=== PATIENT | female | born 1970 | race Caucasian/White ===

== ENCOUNTER 2016-10-20 12:17 | Emergency (ER) | payer OTHER ==
[~2016-10-20] VITALS: Ht 167.6 cm; Wt 100.0 kg
[~2016-10-20 12:17] MED LIST: ALBUAER INH; ATV/1 PO; CALC-354 PO; CALC500C3 PO; CETI10TA84 PO; CHOL1CAP57 PO; CLC100X PO; CRFL PO; CYCL5TAB PO; DFL100 PO; LEVO50TA6 PO; LSX20 PO; NSNN50; NYSS/; OMEP40CA PO; ONDA8TAB6 PO; PRD10 PO; PROM12.56 PO; RANITAB33 PO; TAPE50TA5 PO; VALA1TAB2 PO; XPNIN INH; [UNRECOGNIZED DRUG - CODE] PO
[2016-10-20 12:23] VITALS: TEMP 36.6; Ht 167.6 cm; Wt 100.0 kg
[2016-10-20] MEDS ORDERED: SODIUM CHLORIDE 0.9% 500ML 500 ML IV STA (13:00)
[2016-10-20] MEDS ORDERED: HYDROmorphone INJ 0.5 MG/0.5 ML SYR IV STA (13:00)
--- NOTE | 2016-10-20 14:05 | DIAGNOSTIC IMAGING REPORT ---
LEFT ANKLE MIN 3 VIEWS ROUTINE CLINICAL HISTORY: Left ankle pain COMPARISON: None. DISCUSSION: No fractures or dislocations are visualized. The ankle mortise appears intact. There is bimalleolar soft tissue swelling. IMPRESSION: Soft tissue swelling. No fractures or dislocations identified. Electronically signed by: Dave Castillo M.D. 10/20/2016 2:04 PM Dictated Date/Time: 10/20/2016 2:03 PM
--- NOTE | 2016-10-20 14:08 | DIAGNOSTIC IMAGING REPORT ---
SINGLE VIEW CHEST CLINICAL HISTORY: Atypical chest pain. FINDINGS: An AP, portable, upright chest radiograph is compared to study dated 07/20/2014 and correlated with chest CT dated 07/21/2014. The examination is degraded by portable technique, large body habitus, and patient rotation. A left internal jugular central venous infusion port is new from the 2015 examinations. The cardiomediastinal silhouette is unremarkable. Chronic interstitial thickening is unchanged. The lungs and pleural spaces are clear. No pneumothorax is seen. The skeletal structures appear osteopenic. There is evidence of thoracic compression deformities with previous vertebroplasty. IMPRESSION: No acute cardiopulmonary abnormality. Electronically signed by: Nikita Cox M.D. 10/20/2016 2:07 PM Dictated Date/Time: 10/20/2016 2:05 PM
[2016-10-20] MEDS ORDERED: TRAM-10 PO (14:37)
[2016-10-20 14:38] LABS: BASO % 0.3 %; BASO ABS # 0.04 K/uL (0-0.2); COMPLETE YES; EOS % 0.1 %; HEMATOCRIT 40.1 % (37-47); LYMPH % 9.8 %; LYMPH ABS # 1.15 K/uL (1.2-3.4); MEAN CELL VOLUME 90.7 fL (80-100); MEAN CORPUSCULAR HEMOGLOBIN 29.4 pg (25-34); MEAN CORPUSCULAR HGB CONC 32.4 g/dl (32-36); MEAN PLATELET VOLUME 10.3 fL (7.4-10.4); MONO % 3.6 %; NEUT % 83.2 %; PLATELET COUNT 268 K/uL (130-400); RED BLOOD COUNT 4.42 M/uL (4.2-5.4); WHITE BLOOD COUNT 11.79 K/uL (4.8-10.8)
[2016-10-20] MEDS ORDERED: PRED20TA2 PO (14:38)
[2016-10-20] MEDS ORDERED: DNSIS60 INJ (14:45)
[2016-10-20] MEDS ORDERED: XOLAIR INJ (14:45)
[2016-10-20] MEDS ORDERED: ALBUAER INH (14:46)
[2016-10-20] MEDS ORDERED: DOCU100C31 PO (14:47)
[2016-10-20] MEDS ORDERED: LEVA45AE INH (14:49)
[2016-10-20] MEDS ORDERED: NASONEX (14:51)
[2016-10-20 14:53] LABS: INR 2.8 (0.9-1.1)
[2016-10-20] MEDS ORDERED: ONDANSETRON INJ 2 MG/ML 2 ML VIAL IV STA (14:53)
[2016-10-20] MEDS ORDERED: MOME6000 (14:53)
[2016-10-20] MEDS ORDERED: ONDANSETRON INJ 2 MG/ML 2 ML VIAL ONE (14:54)
[2016-10-20] MEDS ORDERED: OMEP20TA PO (14:56)
[2016-10-20 15:05] LABS: ALT/SGPT 57 U/L (12-78); AST/SGOT 47 U/L (15-37); BLOOD UREA NITROGEN 14 mg/dl (7-18); BUN/CREATININE RATIO 13.1 (10-20); CALCIUM 8.4 mg/dl (8.5-10.1); CARBON DIOXIDE 27 mmol/L (21-32); CHLORIDE 107 mmol/L (98-107); GLUCOSE 124 mg/dl (70-99); POTASSIUM 4.4 mmol/L (3.5-5.1); SODIUM 141 mmol/L (136-145)
[2016-10-20 15:07] LABS: ALKALINE PHOSPHATASE 105 U/L (45-117)
--- NOTE | 2016-10-20 15:29 | DIAGNOSTIC IMAGING REPORT ---
ULTRASOUND LEFT VENOUS DOPP LOWER EXT UNILAT CLINICAL HISTORY: Left leg pain COMPARISON STUDY: 07/21/2014 FINDINGS: Real-time and color flow Doppler imaging were performed. Flow was seen within the femoral, popliteal and calf veins with no intraluminal thrombus demonstrated. The saphenous vein is patent. IMPRESSION: No evidence of left lower extremity DVT. Electronically signed by: Dave Castillo M.D. 10/20/2016 3:28 PM Dictated Date/Time: 10/20/2016 3:28 PM
[2016-10-20 16:31] VITALS: BP 138/81; PULSE 93; O2SAT 94
--- NOTE | 2016-10-20 20:09 | EMERGENCY ROOM VISIT NOTE ---
History Report prepared by Ana Paula: Megan Duarte Under the Supervision of: Dr. Marcus Angulo D.O. First contact with patient: 12:37 Chief Complaint: SWELLING TO EXTREMITY Stated Complaint: SWELLING/PAIN TO LEFT LEG, SOB, CHEST PRESSURE History of Present Illness The patient is a 45 year old female who presents to the Emergency Room with complaints of worsening left lower extremity edema that started 1 month ago. The patient states that originally her leg was just edematous and not painful. She states that her left ankle became painful last week and now her whole left leg is painful. She is also experiencing pain in her hips, but denies back pain. The patient has received two ultrasounds of her leg as well as an ultrasound of her pelvis to rule out DVT, one at [place] and one in [place]. All of the ultrasounds were unremarkable. She also saw her internal medicine doctor for her symptoms and she prescribed her Tramadol for the pain. The Tramadol has offered her minimal relief of her symptoms so she took Vicodin and Zofran yesterday. The patient states that she has sarcoidosis and that it is "everywhere" including her lungs, heart, liver, and spleen. She is also experiencing chest pressure that started 3 days ago. Nothing seems to make the chest pressure better or worse. She states that the chest pressure is not worse with exertion and that she has experienced similar chest pressure intermittently over the last couple years. She was told that the chest pressure may be secondary to scarring from her sarcoidosis. The patient denies any chest pain with breathing. The patient is normally on 2 L of nasal cannula oxygen secondary to the sarcoidosis in her lungs. She states that she is on the oxygen all the time and has been on it since February. The patient had a blood clot in May and is on Coumadin. She states that her INR was low on September 15, but was normal at her 2 week follow-up after that. The patient's US pelvis was negative on 10/03 and leg duplex was negative on . The patient's cardiac MRI on 09/26 showed normal LV, normal EF of 65%, normal RV, atypical midwall enhancement of the midinferior septal segments, and normal ascending and descending aorta. Source of History: patient Onset: 1 month ago Position: leg (left) Quality: other (left lower extremity edema) Timing: worsening Modifying Factors (Relieving): other (None) Associated Symptoms: + chest pain (pressure), No back pain Note: left leg pain, hip pain Review of Systems See HPI for pertinent positives & negatives. A total of 10 systems reviewed and were otherwise negative. Past Medical & Surgical Medical Problems: (1) Asthma (2) Bronchitis (3) Pulmonary embolism (4) Sarcoidosis Family History Gallbladder disease Social History Smoking Status: Never Smoker Alcohol Use: occasionally Drug Use: none Marital Status: single Housing Status: lives with family Occupation Status: employed Current/Historical Medications Scheduled Calcium Carbonate (Tums), 500 TAB PO DIRECTED Calcium Carbonate-Cholecalcife (Caltrate 600+D), 1 TABLETS PO BID Cetirizine (Zyrtec), 10 MG PO DAILY Denosumab (Prolia), Unknown Dose INJ [id number] Docusate Sodium (Docusate Sodium), 1 CAP PO DAILY Furosemide (Furosemide), 40 MG PO DAILY Lorazepam (Ativan), 1 MG PO TID Mometasone Furoate (Nasal) (Mometasone Furoate), 1 SPRAY NA UD Omeprazole (Omeprazole), 40 MG PO BID Prednisone (Prednisone Tab), 20 MG PO DAILY Promethazine Hcl (Phenergan), 12.5 MG PO Q4H Ranitidine Hcl (Zantac), 75 MG PO BID [Xolair], 1 DOSE INJ Q4WK Scheduled PRN Albuterol Sulfate (Proventil Hfa), 1-2 PUFFS INH Q4-6H PRN for SOB/Wheezing Cyclobenzaprine Hcl (Flexeril), 5 MG PO TID PRN for Muscle Spasms Levalbuterol Tartrate (Levalbuterol Tartrate Hfa), 2 PUFFS INH Q6H PRN for SOB/ Wheezing Ondansetron Hcl (Zofran), 8 MG PO DIRECTED PRN for Nausea Sucralfate (Carafate), 1 GM PO AC PRN for REFLUX Tramadol (Ultram), 50 MG PO Q8H PRN for Pain Valacyclovir Hcl (Valtrex), 500 MG PO BID PRN for signs and symptoms Allergies Coded Allergies: Cat Dander (Verified Allergy, Severe, SHORTNESS OF BREATH, 10/20/16) Dog Dander (Verified Allergy, Severe, SHORTNESS OF BREATH, 10/20/16) Dust (Verified Allergy, Severe, SHORTNESS OF BREATH, 10/20/16) Molds and Smuts (Verified Allergy, Severe, SHORTNESS OF BREATH, 10/20/16) Morphine (Verified Allergy, Severe, sob, 10/20/16) POLLEN (Verified Allergy, Severe, SEASONAL-SHORTNESS OF BREATH, 10/20/16) Vitamin K (Verified Allergy, Severe, resp diff, 10/20/16) Methylprednisolone (Verified Adverse Reaction, Intermediate, CELLULITIS FROM SOLUMEDROL IM AND PO UPSETS HER GI TRACK, 10/20/16) Metoclopramide (Verified Adverse Reaction, Unknown, ABDOMINAL CRAMPING/ DIARRHEA, 10/20/16) Physical Exam Vital Signs Date Time Temp Pulse Resp B/P (MAP) Pulse Ox O2 Delivery O2 Flow Rate FiO2 10/20/16 16:31 93 16 138/81 94 10/20/16 15:47 72 18 135/81 96 Room Air 10/20/16 14:40 84 20 125/79 96 Room Air 10/20/16 12:23 36.6 96 20 127/75 96 Nasal Cannula 3.0 Physical Exam GENERAL: alert, sitting up in bed, on nasal cannula oxygen, well appearing, well nourished, minimal distress, non-toxic EYE EXAM: normal conjunctiva OROPHARYNX: no exudate, no erythema, lips, buccal mucosa, and tongue normal and mucous membranes are moist NECK: supple, no nuchal rigidity, no adenopathy, non-tender LUNGS: Clear to auscultation. Normal chest wall mechanics HEART: no murmurs, S1 normal and S2 normal ABDOMEN: abdomen soft, non-tender, normo-active bowel sounds, no masses, no rebound or guarding. BACK: Back is symmetrical on inspection and there is no deformity, no midline tenderness, no CVA tenderness. SKIN: no rashes and no bruising UPPER EXTREMITIES: upper extremities are grossly normal. LOWER EXTREMITIES: Left lower extremity pitting edema, left calf > right calf, tenderness over the left ankle and medial calf tracking up to her left knee and thigh, full active and passive range of motion of hip, knee, ankle, and EHL bilaterally, gross sensations intact, patellar reflexes 2/4 bilaterally. NEURO EXAM: Normal sensorium, cranial nerves II-XII grossly intact, normal speech, no gross weakness of arms. Medical Decision & Procedures ER Provider Diagnostic Interpretation: Radiology results as stated below per my review and the radiologist's interpretation: SINGLE VIEW CHEST FINDINGS: An AP, portable, upright chest radiograph is compared to study dated 07/20/2014 and correlated with chest CT dated 07/21/2014. The examination is degraded by portable technique, large body habitus, and patient rotation. A left internal jugular central venous infusion port is new from the 2015 examinations. The cardiomediastinal silhouette is unremarkable. Chronic interstitial thickening is unchanged. The lungs and pleural spaces are clear. No pneumothorax is seen. The skeletal structures appear osteopenic. There is evidence of thoracic compression deformities with previous vertebroplasty. IMPRESSION: No acute cardiopulmonary abnormality. Electronically signed by: Nikita Cox M.D. 10/20/2016 2:07 PM Dictated Date/Time: 10/20/2016 2:05 PM LEFT ANKLE MIN 3 VIEWS ROUTINE DISCUSSION: No fractures or dislocations are visualized. The ankle mortise appears intact. There is bimalleolar soft tissue swelling. IMPRESSION: Soft tissue swelling. No fractures or dislocations identified. Electronically signed by: Dave Castillo M.D. 10/20/2016 2:04 PM Dictated Date/Time: 10/20/2016 2:03 PM ULTRASOUND LEFT VENOUS DOPP LOWER EXT UNILAT FINDINGS: Real-time and color flow Doppler imaging were performed. Flow was seen within the femoral, popliteal and calf veins with no intraluminal thrombus demonstrated. The saphenous vein is patent. IMPRESSION: No evidence of left lower extremity DVT. Electronically signed by: Dave Castillo M.D. 10/20/2016 3:28 PM Dictated Date/Time: 10/20/2016 3:28 PM Laboratory Results 10/20/16 14:25 Red Blood Count 4.42, Mean Corpuscular Volume 90.7, Mean Corpuscular Hemoglobin 29.4, Mean Corpuscular Hemoglobin Concent 32.4, Mean Platelet Volume 10.3, Neutrophils (%) (Auto) 83.2, Lymphocytes (%) (Auto) 9.8, Monocytes (%) (Auto) 3.6, Eosinophils (%) (Auto) 0.1, Basophils (%) (Auto) 0.3, Neutrophils # (Auto) 9.81, Lymphocytes # (Auto) 1.15, Monocytes # (Auto) 0.43, Eosinophils # (Auto) 0.01, Basophils # (Auto) 0.04 10/20/16 14:25 Test 10/20/16 14:25 White Blood Count 11.79 K/uL (4.8-10.8) Red Blood Count 4.42 M/uL (4.2-5.4) Hemoglobin 13.0 g/dL (12.0-16.0) Hematocrit 40.1 % (37-47) Mean Corpuscular Volume 90.7 fL (80-100) Mean Corpuscular Hemoglobin 29.4 pg (25-34) Mean Corpuscular Hemoglobin Concent 32.4 g/dl (32-36) Platelet Count 268 K/uL (130-400) Mean Platelet Volume 10.3 fL (7.4-10.4) Neutrophils (%) (Auto) 83.2 % Lymphocytes (%) (Auto) 9.8 % Monocytes (%) (Auto) 3.6 % Eosinophils (%) (Auto) 0.1 % Basophils (%) (Auto) 0.3 % Neutrophils # (Auto) 9.81 K/uL (1.4-6.5) Lymphocytes # (Auto) 1.15 K/uL (1.2-3.4) Monocytes # (Auto) 0.43 K/uL (0.11-0.59) Eosinophils # (Auto) 0.01 K/uL (0-0.5) Basophils # (Auto) 0.04 K/uL (0-0.2) RDW Standard Deviation 46.2 fL (36.4-46.3) RDW Coefficient of Variation 13.8 % (11.5-14.5) Immature Granulocyte % (Auto) 3.0 % Immature Granulocyte # (Auto) 0.35 K/uL (0.00-0.02) Prothrombin Time 31.0 SECONDS (9.0-12.0) Prothromb Time International Ratio 2.8 (0.9-1.1) D-Dimer 310 ug/L FEU (0-500) Anion Gap 7.0 mmol/L (3-11) Est Creatinine Clear Calc Drug Dose 76.2 ml/min Estimated GFR () 69.7 Estimated GFR (Non- 60.2 BUN/Creatinine Ratio 13.1 (10-20) Calcium Level 8.4 mg/dl (8.5-10.1) Total Bilirubin 0.3 mg/dl (0.2-1) Direct Bilirubin mg/dl (0-0.2) Aspartate Amino Transf (AST/SGOT) 47 U/L (15-37) Alanine Aminotransferase (ALT/SGPT) 57 U/L (12-78) Alkaline Phosphatase 105 U/L (45-117) Troponin I < 0.015 ng/ml (0-0.045) Total Protein 6.7 gm/dl (6.4-8.2) Albumin 3.2 gm/dl (3.4-5.0) Chemistry Specimen Hemolysis Laboratory results per my review. Medications Administered Medications (Trade) Dose Ordered Sig/Tyson Route Start Time Stop Time Status Last Admin Dose Admin Sodium Chloride 500 ml @ 999 mls/hr Q31M STAT IV 10/20/16 13:00 10/20/16 13:30 DC 10/20/16 13:32 999 MLS/HR Hydromorphone HCl (Dilaudid Inj) 0.5 mg NOW STAT IV 10/20/16 13:00 10/20/16 13:03 DC 10/20/16 14:57 0.5 MG Ondansetron HCl (Zofran Inj) 4 mg NOW STAT IV 10/20/16 14:53 10/20/16 14:54 DC 10/20/16 14:58 4 MG Heparin Sodium (Porcine) (Heparin 100 Unit/ml 5ml Flush) 5 ml STK-MED ONCE .ROUTE 10/20/16 16:10 10/20/16 16:11 DC 10/20/16 16:14 5 ML ECG Indication: chest pain Rate (beats per minute): 76 Rhythm: sinus rhythm Findings: no ectopy, other (normal axis) ED Course ED COURSE: Vital signs were reviewed and showed hypertension. The patients medical record was reviewed The above diagnostic studies were performed and reviewed. ED treatments and interventions as stated above. 1248: The patient was evaluated in room B10. A complete history and physical examination was performed. 1300: Ordered Dilaudid Inj 0.5 mg IV, Sodium Chloride 500 ml @ 999 mls/hr IV 1444: I reassessed the patient. She is resting comfortably and just had her blood work drawn. 1453: Ordered Zofran Inj 4 mg IV 1529: I called the lab and the patient's d-dimer was 310. 1604: Upon reevaluation, the patient is doing well. I discussed my findings with the patient and she understands and agrees with the treatment plan. Based on the patients age, coexisting illnesses, exam and lab findings the decision to treat as an outpatient was made. The patient remained stable while under my care. The patient appeared well at the time of discharge. 1610: Ordered Heparin Sodium (Porcine) 5 ml IV Medical Decision Differential diagnoses includes but is not limited to acute coronary syndrome, myocardial infarction, pericarditis, pulmonary embolus, aortic dissection, pneumonia, pneumothorax, musculoskeletal, shingles, esophageal, DVT, musculoskeletal, infection, joint effusion, trauma, lymphedema, idiopathic, CHF. Medication Reconciliation: I attest that I have personally reviewed the patient' s current medication list. Blood pressure screening: Patient was found to have an elevated blood pressure and was referred to their primary doctor for recheck and further treatment. Patient is a 45 her old female who presents the ER for swelling of her left lower extremity which has been present for the past several weeks. [place] [facility] [place]. She has had 2 previous negative ultrasounds. She follows with rheumatology as well as her primary care doctor for this. She does have a history of sarcoid. She notes that she has had chest pain for the past week which has been unchanged. She has had this chest pain multiple times before in the past. EKG and troponin were negative. D- dimer was negative. Ultrasound of the left lower extremity shows no DVTs. She had good pulses. I do favor this likely related to her sarcoid but cannot be positive. CBC shows a white count of 11,000. BMP along with LFTs, bilirubin was unremarkable. INR was therapeutic and PE was not pursued any further. Patient was updated regards to findings. She was given IV narcotics and discharged to follow-up with her primary care doctor and rheumatology in regards to her left lower extremity pain/swelling. Discussed with Pt concerning signs and symptoms to watch out for. Pt was instructed to follow up with their PCP and discussed with the patient their option to return to the ED at anytime for persistent or worsening symptoms. The appropriate anticipatory guidance and out-patient management, including indications for return to the emergency department, were explained at length to the patient and understood. Impression Primary Impression: Edema of left lower extremity Additional Impression: Pain of left calf Scribe Attestation The scribe's documentation has been prepared under my direction and personally reviewed by me in its entirety. I confirm that the note above accurately reflects all work, treatment, procedures, and medical decision making performed by me. Departure Information Dispostion Home / Self-Care Referrals Daphne Ashraf D.O. (PCP) Forms HOME CARE DOCUMENTATION FORM, IMPORTANT VISIT INFORMATION, WORK / SCHOOL INSTRUCTIONS Patient Instructions ED Leg Swelling Unilateral, My [facility] Additional Instructions Please follow up with your primary care doctor with in the next 24 hours. Any worsening of your symptoms, please return to the ED immediately. This includes fevers greater than 100.4, worsening pain, weakness in your legs, inability to void or move your bowels, or any other concerning signs or symptoms from your standpoint. Problem Qualifiers
== END 2016-10-20 16:32 | disposition home or self-care (01) ==
LOC: C.EDB 12:19
DX: R60.0 Localized edema (principal); M79.662 Pain in left lower leg; D86.9 Sarcoidosis, unspecified; J45.909 Unspecified asthma, uncomplicated; Z86.711 Personal history of pulmonary embolism; Z83.79 Family history of other diseases of the digestive system; Z79.01 Long term (current) use of anticoagulants; Z79.52 Long term (current) use of systemic steroids; Z79.899 Other long term (current) drug therapy; Z99.81 Dependence on supplemental oxygen